=== PATIENT | female | born 1940 | race Caucasian/White ===

== ENCOUNTER 2023-07-22 10:06 | Emergency (ER) | payer MEDICARE, OTHER ==
[~2023-07-22] VITALS: Ht 165.1 cm; Wt 107.0 kg
[~2023-07-22 10:06] MED LIST: ADVAIR DISK1 IN; AMOXICILLIN500 MG PO; ASPIRINCHW 81MG PO; ATENOLOL25 MG PO; BENZONATATE200 MG PO; CALCIUM CHEL1 CAP PO; CIPRO500 MG PO; CRESTOR10 MG PO; DEXILANT60 MG PO; DOXYCYCL HYC100 MG PO; FLAGYL500 MG OR; FLONASE AL50 MCG/ACT IN; HYDREA 500500 MG/CAP PO; HYDROCHLOROT25 MG PO; KEFLEX500 MG PO; MEDDOSEPAK PO; MUCINEX600 MG PO; MULTIVITAM10 OR; PREDNISONE10 MG PO; PREDNISONE20 MG PO; PREDNISONE5 MG PO; RED YEAST RICE EXTRA PO; SINGULAIR PO; SINGULAIR10 MG PO; ULTRAVATE0.051 EX; VANTIN200 M1 PO; VITAMIN C500 M5 PO; VITAMIN D35000 UNI1 PO
[2023-07-22 11:10] LABS: BASO% 0.7 % (0-3); HEMATOCRIT 37.6 % (37.0-47.0); HEMOGLOBIN 12.2 g/dl (12.0-16.0); IMMATURE GRANULOCYTES 0.9 % (0.0-5.0); LYMPH% 22.9 % (15-41); MEAN CELL VOLUME 97.2 fL CALC (80.0-100.0); MEAN CORPUSCULAR HGB 31.5 pG CALC (26.0-32.0); MEAN CORPUSCULAR HGB CONC 32.4 g/dL CAL (32.0-36.0); MONO% 7.3 % (2-13); NEUT# 3.76 thou/uL (2.00-7.15); NEUT% 65.2 % (42-76); RED BLOOD COUNT 3.87 mill/uL (4.20-5.60); RED CELL DISTRI WIDTH 13.7 % (11.5-15.5)
[2023-07-22 11:34] LABS: ALBUMIN 3.9 g/dL (3.2-5.0); ALKALINE PHOSPHATASE 64 u/l (38-126); ANION GAP 10 (6-22 (CALC)); BILIRUBIN, TOTAL 0.4 mg/dL (0.02-1.3); BUN 23 mg/dL (8-23); BUN/CREATININE RATIO 16 (12-20 (CALC)); CARBON DIOXIDE 28 mmol/l (22-30); CHLORIDE 104 mmol/l (95-108); CREATININE 1.4 mg/dL (0.5-1.0); GFR FOR AFR.AMER. 44 ML/MIN (>=60 (CALC)); GFR OTHER RACES 36 ML/MIN (>=60 (CALC)); SGOT/AST 24 u/l (9-36); SODIUM 139 mmol/l (137-146); TOTAL PROTEIN 6.6 g/dL (6.3-8.2)
[2023-07-22 12:12] VITALS: BP 135/62
== END 2023-07-22 12:18 | disposition home or self-care (01) ==
LOC: ED 10:06
PROVIDERS: Family Medicine
DX: R42 Dizziness and giddiness (principal); I10 Essential (primary) hypertension; Z20.822 Contact with and (suspected) exposure to COVID-19